=== PATIENT | female | born 1990 | race Caucasian/White ===

== ENCOUNTER 2017-12-23 11:05 | Emergency (ER) | payer OTHER ==
[~2017-12-23] VITALS: Ht 165.1 cm; Wt 79.4 kg
--- NOTE | 2017-12-23 12:07 | ED GENERAL ADULT ---
History of Present Illness General Chief Complaint: Abdominal Pain/Flank Pain Stated Complaint: +V, ABD PAIN X3DAYS Source: patient Exam Limitations: no limitations Vital Signs & Intake/Output Vital Signs & Intake/Output ED Intake and Output 12/24 0000 12/23 1200 Intake Total 1360 Output Total Balance 1360 Intake, IV 1000 Intake, Oral 360 Patient 175 lb Weight Weight Reported by Patient Measurement Method Allergies Coded Allergies: No Known Allergies (12/23/17) Reconcile Medications Ondansetron (Zofran Odt) 4 MG TAB.RAPDIS 1 TAB SL TID PRN nausea Triage Note: 27 Y/O FEMALE C/O DIFFUSE R SIDED ABDOMINAL PAIN X APPROX 4-5 DAYS; +N/V/D LAST NIGHT AND THIS MORNING. PT STATES SHE HAD HER APPENDIX OUT FEW YEARS AGO, PAIN IN SIMILIAR AREA WITH RADIATION INTO RUQ. PT DENIES FEVERS. DENIES SICK CONTACTS. HAS IUD IN PLACE. Triage Nurses Notes Reviewed? yes Onset: Gradual Duration: day(s): Timing: constant : No Patient currently breastfeeds: No HPI: 27-year-old otherwise healthy female presenting with abdominal pain and NVD. Pt reports lower abdominal pain that radiates to her upper abdomen in "waves" x4-5 days. Last night developed NVD. Reoprts 2-3 episodes of soft stools, not watery diarrhea. Reports constant nausea with 1 episode of non-bloody emesis last night. Denies fevers, dysuria, hematuria, urinary frequency/urgency, vaginal bleeding, vaginal discharge/odor. No prior h/o STD's, and pt has no concern for STD infeciton. Prior abdominal surgeries include appendectomy. (Maria R Gonzales) Past History Travel History Traveled to [place] past 21 day No Medical History Any Pertinent Medical History? none Neurological: NONE EENT: NONE Cardiovascular: NONE Respiratory: NONE Gastrointestinal: NONE Hepatic: NONE Renal: NONE Musculoskeletal: NONE Psychiatric: NONE Endocrine: NONE Blood Disorders: NONE Cancer(s): NONE RUBY DEVELOPER/Reproductive: NONE Surgical History Surgical History: appendectomy Psychosocial History What is your primary language Swiss Tobacco Use: Quit >30 days ago Family History Hx Contributory? No (Maria R Gonzales) Review of Systems Review of Systems Constitutional: Reports: no symptoms. EENTM: Reports: no symptoms. Respiratory: Reports: no symptoms. Cardiovascular: Reports: no symptoms. GI: Reports: see HPI, abdominal pain, diarrhea, nausea, vomiting. Genitourinary: Reports: no symptoms. Musculoskeletal: Reports: no symptoms. Skin: Reports: no symptoms. Neurological/Psychological: Reports: no symptoms. Hematologic/Endocrine: Reports: no symptoms. Immunologic/Allergic: Reports: no symptoms. (Maria R Gonzales) Physical Exam Physical Exam General Appearance: well developed/nourished, no apparent distress, alert, awake , comfortable Head: atraumatic, normal appearance Eyes: Bilateral: normal appearance. Neck: normal inspection Respiratory: normal breath sounds, lungs clear Cardiovascular: regular rate/rhythm, normal peripheral pulses Gastrointestinal: soft, non-tender, hyperactive bowel sounds Back: normal inspection Extremities: normal inspection Neurologic/Psych: awake, alert, oriented x 3, normal gait Skin: intact, normal color, warm/dry Core Measures ACS in differential dx? No CVA/TIA Diagnosis: No Sepsis Present: No Sepsis Focused Exam Completed? No (Maria R Gonzales) Progress Differential Diagnoses I considered the following diagnoses in my evaluation of the patient: [ Gastroenteritis vs ovarian torsion vs ovarian cyst vs UTI vs cervicitis/PID] Plan of Care: Orders Procedure Date/time Status URINE 12/23 1214 Complete URINALYSIS 12/23 1214 Complete LIPASE 12/23 1214 Complete LACTIC ACID 12/23 1214 Complete COMPREHENSIVE METABOLIC PANEL 12/23 1214 Complete CBC WITHOUT DIFFERENTIAL 12/23 1214 Complete Laboratory Tests 12/23/17 1514: Lactic Acid Cancelled 12/23/17 1245: Anion Gap 13, Estimated GFR > 60, BUN/Creatinine Ratio 22.0, Glucose 105 H, Lactic Acid 1.6, Calcium 9.2, Total Bilirubin 1.1, AST 16, ALT 31, Alkaline Phosphatase 59, Total Protein 7.1, Albumin 4.4, Globulin 2.7, Albumin/Globulin Ratio 1.6, Lipase 51, CBC w Diff NO MAN DIFF REQ, RBC 4.57, MCV 90.0, MCH 30.6, MCHC 34.0, RDW 13.2, MPV 8.7, Gran % 88.4 H, Lymphocytes % 7.6 L, Monocytes % 3.1, Eosinophils % 0.7, Basophils % 0.2, Absolute Granulocytes 13.6 H, Absolute Lymphocytes 1.2, Absolute Monocytes 0.5, Absolute Eosinophils 0.1, Absolute Basophils 0 12/23/17 1234: Urine Color YEL, Urine Clarity CLEAR, Urine pH 6.5, Ur Specific Cutler 1.020, Urine Protein TRACE H, Urine Ketones NEG, Urine Nitrite NEG, Urine Bilirubin NEG, Urine Urobilinogen 1.0, Ur Leukocyte Esterase NEG, Ur Microscopic SEDIMENT EXAMINED, Urine WBC 1-3 H, Ur Epithelial Cells MOD H, Urine Bacteria MOD H, Urine Hemoglobin NEG, Urine Glucose NEG, Urine Test NEGATIVE Labs remarkable for WBC 15. Labs otherwise unremarkable. Urine not concerning for infection. TVUS IMPRESSION: IUD in appropriate position; otherwise, unremarkable pelvic ultrasound. Pt reports improvement in abdominal pain after toradol and IVF. Suspect likely with gastroenteritis, although pelvic/cervical infections have not been ruled out as pt is declining pelvic exam. Counseled on supportive care and strict return precautions. Given rx zofran. Will f/u with PMD for re-evaluation. Initial ED EKG: none (Maria R Gonzales) Departure Departure Disposition: HOME OR SELF CARE Condition: Stable Clinical Impression Primary Impression: Abdominal pain Referrals: Soraida Cason DO (PCP/Family) Additional Instructions: Use Zofran as needed for nausea and vomiting. Maintain adequate fluid intake in small meals as tolerable. Follow-up with your primary care provider for reevaluation. Return to the emergency department for any new or worsening symptoms. Departure Forms: Customer Survey General Discharge Information Prescriptions: Current Visit Scripts Ondansetron (Zofran Odt) 1 TAB SL TID PRN nausea #20 TAB (Maria R Gonzales) PA/RACEHORSE TRAINER Co-Sign Statement Statement: ED Attending supervision documentation- [] I saw and evaluated the patient. I have also reviewed all the pertinent lab results and diagnostic results. I agree with the findings and the plan of care as documented in the PA's/RACEHORSE TRAINER's documentation. [x] I have reviewed the ED Record and agree with the PA's/RACEHORSE TRAINER's documentation. [] Additions or exceptions (if any) to the PAs/RACEHORSE TRAINER's note and plan are summarized below: [] (Joaquin Gonzalez DO) Critical Care Note Critical Care Note Critical Care Time: non-applicable (Maria R Gonzales)
[2017-12-23 12:52] LABS: ABSOLUTE BASOPHIL COUNT 0 /CUMM (0.0-0.2); ABSOLUTE EOSINOPHIL COUNT 0.1 /CUMM (0.0-0.7); ABSOLUTE GRANULOCYTE CT 13.6 /CUMM (1.4-6.5); ABSOLUTE LYMPH COUNT 1.2 /CUMM (1.2-3.4); ABSOLUTE MONOCYTE COUNT 0.5 /CUMM (0.10-0.60); BASOPHIL % 0.2 % (0.0-2.0); EOSINOPHIL % 0.7 % (0-5); HEMATOCRIT 41.1 % (37-47); MEAN CORPUSCULAR HGB 30.6 PG (27.0-31.0); MEAN PLATELET VOLUME 8.7 FL (7.4-10.4); PLATELET COUNT 303 /CUMM (130-400); RBC DISTRIBUTION WIDTH 13.2 % (11.5-14.5); RED BLOOD CELL CT 4.57 /CUMM (4.20-5.40); WHITE BLOOD CELL COUNT 15.3 /CUMM (4.8-10.8)
[2017-12-23 13:07] LABS: GRANULOCYTE % 88.4 % (42.2-75.2)
--- NOTE | 2017-12-23 14:01 | ULTRASOUND REPORT ---
EXAMINATIONS: ULTRASOUND PELVIC, COMPLETE AND DOPPLER INTERROGATION CLINICAL INFORMATION: Lower abdominal pain. Nausea, vomiting. COMPARISON: None. TECHNIQUE: Transabdominal and transvaginal imaging was performed. Transvaginal imaging was performed for further evaluation of the endometrium and adnexa. Doppler interrogation spectral analysis was performed. FINDINGS: The uterus is of normal size and echogenicity measuring 6.9 x 3.6 x 5.2 cm. An IUD is in appropriate position. A regular homogeneous endometrium is identified measuring 0.2 cm. The cervical length is 1.5 cm. Both ovaries are of normal size and echogenicity. The right measures 3.1 x 2.1 x 2.8 cm for a volume of 9.5 cc. The left measures 2.8 x 1.7 x 1.9 cm for a volume of 4.7 cc. Normal arterial and venous blood flow is present bilaterally. There is no pelvic free fluid. IMPRESSION: IUD in appropriate position; otherwise, unremarkable pelvic ultrasound.
[2017-12-23 15:34] VITALS: BP 136/74
[2017-12-23] MEDS ORDERED: ZOFRAN ODT4 M1 SL (15:52)
== END 2017-12-23 16:25 ==
LOC: ERH 11:05
PROVIDERS: Physician Assistant
DX: R10.84 Generalized abdominal pain (principal)
CPT/HCPCS: 81001; 81025; 96361; 96374; 96375; J1885; J2405